=== PATIENT | male | born 1970 | race American Indian/Alaskan Native ===

== ENCOUNTER 2018-04-20 03:03 | Emergency (ER) | payer BC ==
[2018-04-20 03:10] VITALS: BP 147/87
[2018-04-20] MEDS ORDERED: TETRACAINE 0.5% OU ONE (05:33)
[2018-04-20] MEDS ORDERED: FUL-GLO OP ONE (05:33)
--- NOTE | 2018-04-20 06:14 | Emergency Department Report ---
Eye Injury/Foreign Body - HPI Duration: 1 Day Severity: Mild Eye Symptoms: Eye Pain: Yes, Blurred Vision: No, Eye Redness: Yes, Grinding/ Hammering Metal: No, Used Eye Protection: No, Contact Lens Use: No, Recalls Injury: Yes (trash debris from his job blew in his eye) Other History: 47 y/o -[place] male presents to the emergency department without fail in his left eye not sure what it was but it occurred about midnight yesterday. He Denies any vision changes denies any pain feels like foreign body in eye wears no glasses wears no contacts has no primary care provider has no known drug allergies. ED Review of Systems ROS: Stated complaint: LT EYE REDNESS WITH SWELLING Other details as noted in HPI Eyes: eye pain (feels like a foreign object in eye) ED Past Medical Hx - Past Medical History Previous Medical History?: No - Surgical History Past Surgical History?: Yes Additional Surgical History: Left Knee - Social History Smoking Status: Never Smoker Substance Use Type: None - Medications Home Medications: Home Medications Medication Instructions Recorded Confirmed Last Taken Type Erythromycin [Erythromycin Ophth 1 strip OS QID #1 tube 04/20/18 Unknown Rx Oint] Eye Injury Exam - Exam General: Vital signs noted. No distress. Alert and acting appropriately. - Visual Acuity Right Vision Acuity Degree: 20/40 Eye Exam: Left Fluorescein Uptake, Both EOMI, Neither Injection, Neither Chemosis, Neither Abnormal Pupil, Neither Eye Foreign Body, Neither Lid Foreign Body, Neither Mucous Discharge, Neither Purulent Discharge, Neither Fluorescein Uptake (slit lamp), Neither Cell/Flare (slit lamp), Neither Corneal Edema, Neither Photophobia Left Vision Acuity Degree: 20/40 Bilateral Vision Acuity Degree: 20/25 ED Course Vital Signs 04/20/18 03:08 Temperature 98.6 F Pulse Rate 85 Respiratory 20 Rate Blood Pressure 147/87 O2 Sat by Pulse 97 Oximetry ED Medical Decision Making - Medical Decision Making Patient has been evaluated by this provider in fast track. Patient appears to have a corneal abrasion of the left eye. We'll place patient on erythromycin ointment. Referral to several senior data developer for follow-up. Discussed the patient the importance of following up with an senior data developer. Discussed the patient he can take Tylenol or Motrin for pain. Also discussed the patient for preventative care he needs to follow up with the primary care provider. I have placed referral to Dr. mike cole and Dr. Worrell. Critical care attestation.: If time is entered above; I have spent that time in minutes in the direct care of this critically ill patient, excluding procedure time. ED Disposition Clinical Impression: Corneal abrasion, left Qualifiers: Encounter type: initial encounter Qualified Code(s): S05.02XA - Injury of conjunctiva and corneal abrasion without foreign body, left eye, initial encounter Disposition: TO HOME OR SELFCARE Is pt being admited?: No Does the pt Need Aspirin: No Condition: Stable Instructions: Corneal Abrasion (ED) Additional Instructions: Please place one strip of what may to the conjunctiva of the eye and blink 4-5 times to get ointment throughout the the eye. It is very important for follow- up with an senior data developer I have placed several referrals on her discharge summary. If you have any pain or discomfort E can take Tylenol or Motrin for pain. Also like for you to follow up with her primary care provider for preventative care I have listed Dr. Shahid inflammation below Prescriptions: Erythromycin [Erythromycin Ophth Oint] 1 strip OS QID #1 tube Referrals: PRIMARY CAREMD [Primary Care Provider] - 3-5 Days [facility], [facility] [Provider Group] - 3-5 Days [facility] [Provider Group] - 3-5 Days DWIGHT FLYNN MD [Staff Physician] - 3-5 Days ERIS SHAHID MD [Staff Physician] - 3-5 Days QUETA WORRELL JR, MD [Staff Physician] - 3-5 Days Forms: Work/School Release Form(ED)
== END 2018-04-20 06:45 | disposition home or self-care (01) ==
LOC: ED 03:03
DX: S05.02XA Injury of conjunctiva and corneal abrasion without foreign body, left eye, initial encounter (principal); X58.XXXA Exposure to other specified factors, initial encounter; Y93.89 Activity, other specified; Y92.89 Other specified places as the place of occurrence of the external cause; Y99.8 Other external cause status
CPT/HCPCS: 99282; 99283